=== PATIENT | female | born 1965 | race Caucasian/White ===

== ENCOUNTER → 2017-05-21 | Outpatient (CLI) | payer BC ==
--- NOTE | 2017-05-21 16:42 | BD ---
EXAMINATION TYPE: MG DEXA axial skeleton. DATE OF EXAM: 05/21/2017 COMPARISON: NONE CLINICAL HISTORY: 51-year-old female postmenopausal screening without HRT Height: 62.5 Weight: 188.5 FRAX RISK QUESTIONS: Alcohol (3 or more units per day): no Family History (Parent hip fracture): no Glucocorticoids (More than 3mos): no (Ex: prednisone, prednisolone, methylprednisolone, dexamethasone, and hydrocortisone). History of Fracture in Adulthood: no Secondary Osteoporosis: 1. Type 1 Diabetes: no 2. Hyperthyroidism: no 3. Menopause before 45: yes 4. Malnutrition: no 5. Chronic liver disease: no Rheumatoid Arthritis: no Current Tobacco Use: no RISK FACTORS HISTORY OF: History of Wrist Fracture: right When: 1979 Surgery to Spine/Hip(right/left)/Wrist (right/left): no Family History of Osteoporosis: no Active: no Diet low in dairy products/other sources of calcium: yes Postmenopausal woman: hysterectomy 2012 Lost more than 2 inches in height since high school: no Frequent falls: no Poor Health: no Adrenal Insufficiency: no MEDICATIONS: simvastatin , Imitrex Additional History: EXAM MEASUREMENTS: Bone mineral densitometry was performed using the [employer]ero System. Bone mineral density as measured about the Lumbar spine is: ----- L1-L4(G/cm2): 1.412 T Score Values are as follows: ----- L2: 1.6 ----- L3: 2.1 ----- L4: 2.8 ----- L1-L4: 1.9 Bone mineral density has: baseline Bone mineral density about the R hip (g/cm2): 1.032 Bone mineral density about the L hip (g/cm2): 0.982 T Score values are as follows: -----R Neck: 0.0 -----L Neck: -0.4 -----R Total: 0.9 -----L Total: 0.4 Bone mineral density has: baseline IMPRESSION: Normal (Values between +1 and -1 indicate normal bone mass). Consider repeating this study in 5 year s or sooner if there is some new clinical indication. NOTE: T-SCORE=SD OF THE YOUNG ADULT MEAN.
--- NOTE | 2017-05-26 10:26 | MM ---
Reason for exam: screening (asymptomatic). Last mammogram was performed 8 years ago. History: Family history of breast cancer in paternal aunt. Took hormonal contraceptives for 10 years. Physical Findings: A clinical breast exam by your physician is recommended on an annual basis and results should be correlated with mammographic findings. MG Screening Mammo w CAD Bilateral CC and MLO view(s) were taken. Prior study comparison: May 24, 2009, bilateral digital screening mammogram. There are scattered fibroglandular densities. New adjacent circumscribed masses upper outer quadrant right breast and smaller nodular focal asymmetry 8-9 o'clock right breast middle depth. ASSESSMENT: Incomplete: need additional imaging evaluation, BI-RAD 0 RECOMMENDATION: Ultrasound of the right breast. (7-11 o'clock) [facility] will attempt to contact patient to return for ultrasound.
== END | disposition home or self-care (01) ==
LOC: RADMAMWWP 08:41
PROVIDERS: ATTEND Family Medicine
DX: Z12.31 Encounter for screening mammogram for malignant neoplasm of breast (principal); Z78.0 Asymptomatic menopausal state
CPT/HCPCS: 77067; 77080

== ENCOUNTER → 2017-05-27 | Outpatient (CLI) | payer BC ==
--- NOTE | 2017-05-27 10:11 | USB ---
Reason for exam: additional evaluation requested from abnormal screening. History: Family history of breast cancer in paternal aunt. Took hormonal contraceptives for 10 years. Physical Findings: Nurse did not find any significant physical abnormalities on exam. US Breast Workup Limited RT Right breast ultrasound demonstrates a 2.2 x 1.0 x 1.1cm lobular, cystic, benign lesion at 10 o'clock, a 0.9 x 0.5 x 1.2cm lobular, benign, cystic cluster at 10 o'clock and a 0.8 x 0.4 x 0.6cm microlobular, solid, hypoechoic, vascular lesion at 7 o'clock These results were verbally communicated with the patient and result sheet given to the patient on 05/27/17. ASSESSMENT: Suspicious, BI-RAD 4 RECOMMENDATION: Ultrasound core biopsy of the right breast. (7:00) Called Dr. Craig with mammographic findings and has scheduled an appointment for the patient for 05/29/17 at 8:[address] Salguero. PRELIMINARY REPORT CALLED AND FAXED TO DR. SALGUERO ON 05/27/17.
== END | disposition home or self-care (01) ==
LOC: RADUSWWP 08:34
PROVIDERS: ATTEND Family Medicine
DX: N63.11 Unspecified lump in the right breast, upper outer quadrant (principal); R92.8 Other abnormal and inconclusive findings on diagnostic imaging of breast

== ENCOUNTER → 2017-06-16 | Day surgery (SDC) | payer BC ==
[2017-06-16 11:39] VITALS: RESP 16; TEMP 98.1; BMI 34.7
[2017-06-16 13:10] VITALS: BP 141/82; PULSE 68
--- NOTE | 2017-06-16 13:26 | USB ---
EXAMINATION TYPE: US biopsy breast VAD RT, MG diagnostic mammo RT wo CAD DATE OF EXAM: 06/16/2017 CLINICAL HISTORY: R92.8 Abn mammo. TECHNIQUE: Ultrasound guided core biopsy of right 7:00 breast. COMPARISON: NONE FINDINGS: The procedure of ultrasound guided core biopsy was explained to the patient. Benefits, alternatives, and risks were discussed. An informed consent was then obtained. The patient was placed in supine positioning for imaging and for the procedure. The overlying skin was prepped and draped in usual sterile fashion. Lidocaine buffered with bicarbonate was used as anesthetic into the skin and subcutaneous tissue up to area of concern in the right 7:00 breast. A faustino was made with surgical scalpel. Under ultrasound guidance, a 12-gauge vacuum assisted biopsy gun device was used to obtain 4 core samples. Following this, a biopsy clip was left in lesion. Postprocedural mammogram demonstrates appropriate deployment. The patient tolerated the procedure well without any immediate complication. The patient was kept in the radiology department for short stay after the procedure and then discharged home in stable condition. IMPRESSION: Successful, uncomplicated ultrasound guided core biopsy of area of concern in the right 7:00 breast, full pathology results to follow. Pathology Results: Benign BREAST, RIGHT, 7:00, CORE BIOPSY: FIBROADENOMA. BACKGROUND FIBROCYSTIC CHANGES INCLUDING CYSTS AND FIBROSIS. Recommendation Follow up mammogram of the right breast in 6 months. RON
== END ==
LOC: RADUSWWP 11:06
PROVIDERS: ATTEND Surgery
DX: D24.1 Benign neoplasm of right breast (principal); N60.31 Fibrosclerosis of right breast; Z88.2 Allergy status to sulfonamides
CPT/HCPCS: 88305; 77065; 19083; A4648; J2001

== ENCOUNTER 2017-08-01 12:55 | Observation (INO) | payer BC ==
[2017-08-01] MEDS ORDERED: SODIUM CHLORIDE 0.9% 1,000 ML IV STA ×2 (13:51)
[2017-08-01 14:07] LABS: Appearance,Urine Clear (Clear); Bilirubin,Urine Negative (Negative); Blood,Urine Negative (Negative); Color,Urine Yellow; Glucose,Urine (UA) Negative (Negative); Ketones,Urine Negative (Negative); Leukocyte Esterase,Urine Negative (Negative); Nitrite,Urine Negative (Negative); PH, Urine 5.5 (5.0-8.0); Protein,Urine Trace (Negative); Specific Gravity,Urine 1.027 (1.001-1.035); Urobilinogen,Urine <2.0 mg/dL (<2.0)
[2017-08-01 14:08] LABS: Basophils # (A) 0.1 k/uL (0-0.2); Basophils % (A) 1 %; Eosinophils % (A) 0 %; HCT 25.2 % (34.0-46.0); Hypochromasia Slight; Lymphocytes # (A) 1.5 k/uL (1.0-4.8); Lymphocytes % (A) 17 %; MCH 29.4 pg (25.0-35.0); MCHC 31.6 g/dL (31.0-37.0); Mean Platelet Volume 6.7; Monocytes # (A) 0.4 k/uL (0-1.0); Monocytes % (A) 5 %; Neutrophils # (A) 6.8 k/uL (1.3-7.7); Neutrophils % (A) 76 %; Platelet Count 475 k/uL (150-450); Poikilocytosis Slight; RBC 2.71 m/uL (3.80-5.40); RDW 13.9 % (11.5-15.5); WBC 8.9 k/uL (3.8-10.6)
[2017-08-01 14:16] LABS: ALT 30 U/L (9-52); AST 23 U/L (14-36); Albumin 4.3 g/dL (3.5-5.0); Alkaline Phosphatase 71 U/L (38-126); Amylase 106 U/L (30-110); Anion Gap 14 mmol/L; Blood Urea Nitrogen 14 mg/dL (7-17); Calcium 10.1 mg/dL (8.4-10.2); Carbon Dioxide 22 mmol/L (22-30); Chloride 106 mmol/L (98-107); Glucose 105 mg/dL (74-99); Lipase 248 U/L (23-300); Potassium 3.9 mmol/L (3.5-5.1); Sodium 142 mmol/L (137-145); Total Bilirubin 0.1 mg/dL (0.2-1.3); Total Protein 6.8 g/dL (6.3-8.2)
--- NOTE | 2017-08-01 14:35 | ED ---
Recheck HPI - General Chief Complaint: Recheck/Abnormal Lab/Rx Stated Complaint: low Hgb Time Seen by Provider: 08/01/17 13:40 Source: patient, RN notes reviewed, old records reviewed Mode of arrival: wheelchair Limitations: no limitations - History of Present Illness Initial Comments: Is a 51-year-old female presenting to plan for reevaluation. She states that she went to urgent care a few days ago and was sinus the urinary tract infection. They did laboratory that time. They called back because her hemoglobin was low. Patient occasionally she feels dizzy and lightheaded. She denies any specific chest pain. Occasional shortness of breath. Denies any heavy vaginal bleeding, hysterectomy many years ago. Patient she's had occasional dark stools. She denies any abdominal pain Patient she does feel like she is doing with some mild renal minor constipation. No vomiting. - Related Data Home Medications Medication Instructions Recorded Confirmed [id number] 2 tab PO Q6HR PRN 01/05/14 08/01/17 [Excedrin] Multivitamin [Multivitamins Adult 1 tab PO DAILY 06/02/17 08/01/17 Gummies] SUMAtriptan SUCCINATE [Sumatriptan 100 mg PO TID PRN 06/02/17 08/01/17 Succinate] Simvastatin [Zocor] 20 mg PO DAILY 06/02/17 08/01/17 Aspirin 325 mg PO ONCE PRN 08/01/17 08/01/17 Ciprofloxacin HCl [Cipro] 500 mg PO BID 08/01/17 08/01/17 Allergies Allergy/AdvReac Type Severity Reaction Status Date / Time Sulfa (Sulfonamide Allergy Unknown Verified 08/01/17 14:10 Antibiotics) Review of Systems ROS Statement: Those systems with pertinent positive or pertinent negative responses have been documented in the HPI. ROS Other: All systems not noted in ROS Statement are negative. Past Medical History Past Medical History: Hyperlipidemia Additional Past Medical History / Comment(s): migraines History of Any Multi-Drug Resistant Organisms: None Reported Past Surgical History: Section, Hysterectomy, Tubal Ligation Past Anesthesia/Blood Transfusion Reactions: No Reported Reaction Past Psychological History: No Psychological Hx Reported Smoking Status: Former smoker Past Alcohol Use History: None Reported Past Drug Use History: None Reported General Exam - General Exam Comments Initial Comments: 51-year-old female. Alert and oriented. No acute distress. Limitations: no limitations General appearance: alert, in no apparent distress Head exam: Present: atraumatic, normocephalic, normal inspection Eye exam: Present: normal appearance, PERRL, EOMI. Absent: scleral icterus, conjunctival injection, periorbital swelling ENT exam: Present: normal exam, mucous membranes moist Neck exam: Present: normal inspection. Absent: tenderness, meningismus, lymphadenopathy Respiratory exam: Present: normal lung sounds bilaterally. Absent: respiratory distress, wheezes, rales, rhonchi, stridor Cardiovascular Exam: Present: regular rate, normal rhythm, normal heart sounds. Absent: systolic murmur, diastolic murmur, rubs, gallop, clicks GI/Abdominal exam: Present: soft, normal bowel sounds. Absent: distended, tenderness, guarding, rebound, rigid Extremities exam: Present: normal inspection, full ROM, normal capillary refill. Absent: tenderness, pedal edema, joint swelling, calf tenderness Back exam: Present: normal inspection Neurological exam: Present: alert, oriented X3, CN II-XII intact Psychiatric exam: Present: normal affect, normal mood Skin exam: Present: warm, dry, intact, normal color. Absent: rash Course Vital Signs 08/01/17 08/01/17 13:17 15:06 Temperature 98.4 F Pulse Rate 87 88 Respiratory 18 16 Rate Blood Pressure 117/54 126/61 O2 Sat by Pulse 100 95 Oximetry - Reevaluation(s) Reevaluation #1: 08/01/17 16:51 Patient is reevaluated she is to continue to complain of some dizziness and lightheadedness. They plan to admit the Patient and she had near syncopal episode. Medical Decision Making - Medical Decision Making 51-year-old female presents emergency Department chief complaint of fatigue dizziness. She states she was told at urgent care that she had a low hemoglobin yesterday. She was treated in urgent care for a urinary tract infection. At this time patient's labwork was reviewed. Hemoglobin of 8. Stool occult was negative. She states the past few days she did have some dark stools. Patient is concerned about her dizziness and lightheadedness, symptomatic anemia. Amanda of the Patient she still felt very dizzy lightheaded. Patient be given Protonix. Admitted to observation for repeat CBC and iron studies. - Lab Data Result diagrams: 08/01/17 13:45 08/01/17 13:45 Lab Results 08/01/17 08/01/17 08/01/17 Range/Units 13:45 13:45 13:45 WBC 8.9 (3.8-10.6) k/uL RBC 2.71 L (3.80-5.40) m/uL Hgb 8.0 L (11.4-16.0) gm/dL Hct 25.2 L (34.0-46.0) % MCV 93.0 (80.0-100.0) fL MCH 29.4 (25.0-35.0) pg MCHC 31.6 (31.0-37.0) g/dL RDW 13.9 (11.5-15.5) % Plt Count 475 H (150-450) k/uL Neutrophils % 76 % Lymphocytes % 17 % Monocytes % 5 % Eosinophils % 0 % Basophils % 1 % Neutrophils # 6.8 (1.3-7.7) k/uL Lymphocytes # 1.5 (1.0-4.8) k/uL Monocytes # 0.4 (0-1.0) k/uL Eosinophils # 0.0 (0-0.7) k/uL Basophils # 0.1 (0-0.2) k/uL Hypochromasia Slight Poikilocytosis Slight Sodium 142 (137-145) mmol/L Potassium 3.9 (3.5-5.1) mmol/L Chloride 106 (98-107) mmol/L Carbon Dioxide 22 (22-30) mmol/L Anion Gap 14 mmol/L BUN 14 (7-17) mg/dL Creatinine 0.80 (0.52-1.04) mg/dL Est GFR (CKD-EPI)AfAm >90 (>60 ml/min/1.73 sqM) Est GFR (CKD-EPI)NonAf 87 (>60 ml/min/1.73 sqM) Glucose 105 H (74-99) mg/dL Calcium 10.1 (8.4-10.2) mg/dL Total Bilirubin 0.1 L (0.2-1.3) mg/dL AST 23 (14-36) U/L ALT 30 (9-52) U/L Alkaline Phosphatase 71 (38-126) U/L Total Creatine Kinase (30-135) U/L CK-MB (CK-2) (0.0-2.4) ng/mL CK-MB (CK-2) Rel Index Troponin I (0.000-0.034) ng/mL Total Protein 6.8 (6.3-8.2) g/dL Albumin 4.3 (3.5-5.0) g/dL Amylase 106 (30-110) U/L Lipase 248 (23-300) U/L Urine Color Urine Appearance (Clear) Urine pH (5.0-8.0) Ur Specific [place] (1.001-1.035) Urine Protein (Negative) Urine Glucose (UA) (Negative) Urine Ketones (Negative) Urine Blood (Negative) Urine Nitrite (Negative) Urine Bilirubin (Negative) Urine Urobilinogen (<2.0) mg/dL Ur Leukocyte Esterase (Negative) Stool Occult Blood (Negative) Blood Type A Positive Blood Type Recheck No Antibody Screen NEGATIVE Spec Expiration Date 08/04/2017 - 234408/01/17 08/01/17 08/01/17 Range/Units 13:45 13:45 Unknown WBC (3.8-10.6) k/uL RBC (3.80-5.40) m/uL Hgb (11.4-16.0) gm/dL Hct (34.0-46.0) % MCV (80.0-100.0) fL MCH (25.0-35.0) pg MCHC (31.0-37.0) g/dL RDW (11.5-15.5) % Plt Count (150-450) k/uL Neutrophils % % Lymphocytes % % Monocytes % % Eosinophils % % Basophils % % Neutrophils # (1.3-7.7) k/uL Lymphocytes # (1.0-4.8) k/uL Monocytes # (0-1.0) k/uL Eosinophils # (0-0.7) k/uL Basophils # (0-0.2) k/uL Hypochromasia Poikilocytosis Sodium (137-145) mmol/L Potassium (3.5-5.1) mmol/L Chloride (98-107) mmol/L Carbon Dioxide (22-30) mmol/L Anion Gap mmol/L BUN (7-17) mg/dL Creatinine (0.52-1.04) mg/dL Est GFR (CKD-EPI)AfAm (>60 ml/min/1.73 sqM) Est GFR (CKD-EPI)NonAf (>60 ml/min/1.73 sqM) Glucose (74-99) mg/dL Calcium (8.4-10.2) mg/dL Total Bilirubin (0.2-1.3) mg/dL AST (14-36) U/L ALT (9-52) U/L Alkaline Phosphatase (38-126) U/L Total Creatine Kinase 56 (30-135) U/L CK-MB (CK-2) 0.5 (0.0-2.4) ng/mL CK-MB (CK-2) Rel Index 0.9 Troponin I <0.012 (0.000-0.034) ng/mL Total Protein (6.3-8.2) g/dL Albumin (3.5-5.0) g/dL Amylase (30-110) U/L Lipase (23-300) U/L Urine Color Yellow Urine Appearance Clear (Clear) Urine pH 5.5 (5.0-8.0) Ur Specific [place] 1.027 (1.001-1.035) Urine Protein Trace H (Negative) Urine Glucose (UA) Negative (Negative) Urine Ketones Negative (Negative) Urine Blood Negative (Negative) Urine Nitrite Negative (Negative) Urine Bilirubin Negative (Negative) Urine Urobilinogen <2.0 (<2.0) mg/dL Ur Leukocyte Esterase Negative (Negative) Stool Occult Blood Negative (Negative) Blood Type Blood Type Recheck Antibody Screen Spec Expiration Date - Radiology Data Radiology results: report reviewed KUB and chest x-rays negative for any acute process. Disposition Clinical Impression: Anemia, Near syncope Disposition: ADMITTED IP TO THIS [facility] Condition: Good Is patient prescribed a controlled substance at d/c from ED?: No When asked, does pt state using other controlled substances?: No If prescribed controlled substance>3 days was MAPS reviewed?: No If opioid is for acute pain is fill amount 7 days or less?: No If Rx opioid, was Start Talking consent form obtained?: No Referrals: Maite Craig MD [Primary Care Provider] - 1-2 days Time of Disposition: 16:53
[2017-08-01 14:44] LABS: Creatine Kinase 56 U/L (30-135)
[2017-08-01 14:57] LABS: Creatine Kinase MB 0.5 ng/mL (0.0-2.4); Troponin I <0.012 ng/mL (0.000-0.034)
--- NOTE | 2017-08-01 15:26 | XR ---
EXAMINATION TYPE: XR chest 2V DATE OF EXAM: 08/01/2017 COMPARISON: Prior chest 01/05/2014 HISTORY: Syncope, anemia, pain TECHNIQUE: Frontal and lateral views of the chest are obtained. FINDINGS: There is no focal air space opacity, pleural effusion, or pneumothorax seen. The cardiac silhouette size is within normal limits. The osseous structures are intact. IMPRESSION: No acute cardiopulmonary process.
--- NOTE | 2017-08-01 15:28 | XR ---
Abdomen HISTORY: Anemia, pain Frontal view of the abdomen submitted on 2 images Comparison chest x-ray same date There is mild spinal curvature. Lung bases are clear. There is no pneumoperitoneum or bowel obstructi on. There is metallic density in the right hemipelvis which may represent a fallopian tubal ligation clip. Correlate with appropriate history. Degenerative disc changes in the visualized spine. No evide nt pathologic calcification. Possible phleboliths in the pelvis. IMPRESSION: Single possible tubal ligation clip in the pelvis, correlate for appropriate history. Fin dings in the spine as described.
[2017-08-01] MEDS ORDERED: PANTOPRAZOLE 40 MG/10 ML VIAL IVP STA (16:53)
[2017-08-01] MEDS ORDERED: ONDANSETRON 4 MG/2 ML VIAL IVP PRN (16:55)
[2017-08-01] MEDS ORDERED: NALOXONE 0.4 MG/ML 1 ML VIAL IV PRN (16:55)
[2017-08-01] MEDS ORDERED: IBUPROFEN 400 MG TAB PO PRN (16:55)
[2017-08-01] MEDS ORDERED: ACETAMINOPHEN TAB 325 MG TAB PO PRN (16:55)
[2017-08-01] MEDS ORDERED: MORPHINE SULFATE 4 MG/ML SYRINGE IV PRN (16:55)
[2017-08-01] MEDS ORDERED: ASPIRIN-ACET-CAFF 250-250-65MG 1 EACH TAB PO PRN (16:57)
[2017-08-01] MEDS ORDERED: ASPIRIN 325 MG TAB PO PRN (16:57)
[2017-08-01] MEDS: SODIUM CHLORIDE 0.9% 1,000 ML IV SCH (18:22)
[2017-08-01] MEDS: CIPROFLOXACIN HCL 500 MG TAB PO SCH (19:36)
[2017-08-01] MEDS ORDERED: TEMAZEPAM 15 MG CAP PO PRN (20:27)
[2017-08-01] MEDS ORDERED: ALPRAZolam 0.25 MG TAB PO PRN (20:27)
--- NOTE | 2017-08-01 21:30 | HP ---
HISTORY AND PHYSICAL DATE OF SERVICE: 08/01/2017 CHIEF COMPLAINTS: Anemia as well as dark stools. HISTORY OF PRESENT ILLNESS: This 51-year-old woman with a past medical history of multiple medical problems, including hyperlipidemia, history of migraines, section, hysterectomy, being followed by Dr. Maite Craig in the outpatient setting, was complaining of tiredness and weakness and some dizziness. The patient had a UTI a few days ago and was treated in Urgent Care. Hemoglobin was found to be low, and because of multiple symptomatology patient was taken to [facility] and admitted for further evaluation and treatment. The patient was also complaining of dark-colored stools; not actually melena at this time. PAST MEDICAL HISTORY: 1. History of hyperlipidemia. 2. Migraines. 3. Hysterectomy. MEDICATIONS PRIOR TO ADMISSION: 1. Zocor 20 mg p.o. daily. 2. Sumatriptan 100 mg t.i.d. p.r.n. 3. Multivitamins 1 p.o. daily. 4. Cipro 500 mg b.i.d. 5. Excedrin 2 tablets p.o. q.6 p.r.n. 6. Aspirin 325 mg once. ALLERGIES: SULFA. FAMILY HISTORY: History of hypertension and diet-controlled diabetes mellitus. SOCIAL HISTORY: Previous history of smoking. No current smoking or alcohol intake. REVIEW OF SYSTEMS: ENT: No diminished hearing. No diminished vision. CARDIOVASCULAR SYSTEM: As mentioned earlier. RESPIRATORY SYSTEM: As mentioned earlier. GI: No nausea, vomiting. : No dysuria or retention. NERVOUS SYSTEM: No numbness, weakness. ALLERGY/IMMUNOLOGY: No asthma, hayfever. MUSCULOSKELETAL: As mentioned earlier. HEMATOLOGY/ONCOLOGY: No history of anemia. ENDOCRINE: No history of diabetes, hypothyroidism. CONSTITUTIONAL: As mentioned earlier. DERMATOLOGY: Negative. RHEUMATOLOGY: Negative. PSYCHIATRY: As mentioned earlier. PHYSICAL EXAMINATION: Patient alert and oriented x3. Pulse 88, blood pressure 129/59, respirations 16, temperature 98.3, pulse ox 100% on room air. HEENT: Conjunctivae pale. Oral mucosa moist. Pigmented areas of the lips present. NECK: No jugular venous distention. No carotid bruit. No lymph node enlargement. CARDIOVASCULAR SYSTEM: S1, S2 muffled. No S3. No S4. RESPIRATORY SYSTEM: Breath sounds diminished at the bases. No rhonchi. No crackles. ABDOMEN: Soft, non-tender. No mass palpable. LEGS: No edema. No swelling. NERVOUS SYSTEM: Higher functions as mentioned earlier. Moves all 4 limbs. No focal motor or sensory deficit. LYMPHATICS: No lymph node palpable in neck, axillae or groin. SKIN: No ulcer, rash, bleeding. JOINTS: No active deforming arthropathy. LABS: WBC 8.9, hemoglobin is 8 and glucose 105. Total bilirubin is 0.1. ASSESSMENT: 1. Anemia, acute on chronic, possible blood-loss anemia. Rule out GI bleed. 2. History of hyperlipidemia. 3. History of migraines. 4. History of section. 5. History of hysterectomy. 6. Remote history of nicotine dependence. 7. Melanosis around the lips. 8. FULL CODE. RECOMMENDATIONS AND DISCUSSION: In this 51-year-old woman who presented with multiple complex medical issues, we will monitor the patient closely, continue the current medications, continue symptomatic treatment. Otherwise, I recommend proton pump inhibitors. Repeat labs. I would also recommend gastroenterology consultation and possible endoscopies. The initial possibilities like Peutz-Jeghers syndrome also may be considered, and a polyposis syndrome would be classical of that syndrome. I would recommend holding the aspirin and continue to monitor. Otherwise, guarded prognosis. Further recommendations to follow. DVT prophylaxis. Repeat labs have been sought. Symptomatic treatment also will be provided. MMODL / IJN: [id number] /
[2017-08-02 00:51] LABS: Iron Saturation 2.86 (12.00-45.00)
[2017-08-02] MEDS: SODIUM CHLORIDE 0.9% 1,000 ML IV SCH ×4 (01:07→22:43)
[2017-08-02 07:51] LABS: Anion Gap 13 mmol/L; Blood Urea Nitrogen 11 mg/dL (7-17); Calcium 8.9 mg/dL (8.4-10.2); Carbon Dioxide 21 mmol/L (22-30); Chloride 107 mmol/L (98-107); Glucose 86 mg/dL (74-99); Potassium 3.7 mmol/L (3.5-5.1); Sodium 141 mmol/L (137-145)
[2017-08-02 07:53] LABS: Basophils % (A) 1 %; Eosinophils # (A) 0.1 k/uL (0-0.7); Eosinophils % (A) 1 %; HCT 21.3 % (34.0-46.0); Hypochromasia Slight; Lymphocytes # (A) 1.7 k/uL (1.0-4.8); Lymphocytes % (A) 28 %; MCHC 32.2 g/dL (31.0-37.0); Mean Platelet Volume 6.7; Monocytes # (A) 0.4 k/uL (0-1.0); Monocytes % (A) 6 %; Neutrophils # (A) 3.8 k/uL (1.3-7.7); Neutrophils % (A) 62 %; Platelet Count 405 k/uL (150-450); Poikilocytosis Slight; RBC 2.29 m/uL (3.80-5.40); RDW 13.8 % (11.5-15.5)
[2017-08-02 08:03] LABS: HGB 6.9 gm/dL (11.4-16.0)
[2017-08-02] MEDS ORDERED: PANTOPRAZOLE 40 MG/10 ML VIAL IV SCH (09:00)
[2017-08-02] MEDS: ATORVASTATIN 10 MG TAB PO SCH (09:20)
[2017-08-02] MEDS: CIPROFLOXACIN HCL 500 MG TAB PO SCH (09:21)
[2017-08-02] MEDS: PANTOPRAZOLE 40 MG/10 ML VIAL IV SCH ×2 (09:22→19:43)
[2017-08-02] MEDS: Acetaminophen-Codeine 300-30mg TAB PO PRN ×3 (09:23→20:44)
[2017-08-02] MEDS: SUMAtriptan SUCCINATE 50 MG TAB PO PRN ×2 (11:49→19:42)
[2017-08-02] MEDS: MULTIVITAMINS, THERA 1 EACH TAB PO SCH (14:30)
[2017-08-02] MEDS ORDERED: IV FLUID CONTINUATION 1,000 ML IV ONE (15:15)
[2017-08-02] MEDS ORDERED: LIDOCAINE 1% INJ 10MG/ML (20 ML MDV) ONE (15:18)
[2017-08-02] MEDS ORDERED: PROPOFOL 10 MG/ML 20 ML VIAL IV ONE (15:18)
--- NOTE | 2017-08-02 15:19 | P.CONS ---
History of Present Illness - Reason for Consult Consult date: 08/02/17 GI bleeding and anemia - History of Present Illness The patient is a 51-year-old female who was admitted to the hospital because of anemia. Apparently, she was seen at the urgent care clinic the day before admission for urinary tract infection and was cold back because she was found to have low blood counts. The patient apparently has been feeling tired and was having occasional dark stools. She has history of migraine and has been taking Excedrin for that. Denied nausea, vomiting or hematemesis. No hematochezia. No abdominal pains or other symptoms. No chest pains or any sensory or motor changes. Review of Systems Constitutional: Denies fever, chills, sweats, weight gain, or loss. Increased fatigue weakness. HEENT: History of migraines, blurred vision or loss, earaches, drainage, tinnitus, oral mucosal lesions, dysphagia, or odynophagia. CARDIAC: Negative for chest pain, arrhythmias, or palpitation. RESPIRATORY: Negative for shortness of breath, hemoptysis, cough, or sputum production. GI: See HPI for pertinent findings. : Negative for hematuria, urgency, frequency, polyuria, or dysuria. GYNc: Negative vaginal discharge. MUSCULOSKELETAL: Negative for muscle aches, swelling, arthritis, and arthralgias. NEUROLOGIC: Negative for stroke or TIA. ENDOCRINE: Negative for thyroid problems. SKIN: Negative for rash or itching. PSYCHIATRIC: Negative history for depression and anxiety Past Medical History Past Medical History: Hyperlipidemia Additional Past Medical History / Comment(s): migraines, dx w/uti 07-31-17 History of Any Multi-Drug Resistant Organisms: None Reported Past Surgical History: Section, Hysterectomy, Tubal Ligation Additional Past Surgical History / Comment(s): venecia eye sx d/t lazy eye Past Anesthesia/Blood Transfusion Reactions: No Reported Reaction Smoking Status: Former smoker - Past Family History Mother Additional Family Medical History / Comment(s): diet conrrolled dm Father Family Medical History: Hypertension Additional Family Medical History / Comment(s): diet controlled diabetic Medications and Allergies Home Medications Medication Instructions Recorded Confirmed Type [id number] 2 tab PO Q6HR PRN 01/05/14 08/01/17 History [Excedrin] Multivitamin [Multivitamins Adult 1 tab PO DAILY 06/02/17 08/01/17 History Gummies] SUMAtriptan SUCCINATE [Sumatriptan 100 mg PO TID PRN 06/02/17 08/01/17 History Succinate] Simvastatin [Zocor] 20 mg PO DAILY 06/02/17 08/01/17 History Aspirin 325 mg PO ONCE PRN 08/01/17 08/01/17 History Ciprofloxacin HCl [Cipro] 500 mg PO BID 08/01/17 08/01/17 History Allergies Allergy/AdvReac Type Severity Reaction Status Date / Time Sulfa (Sulfonamide Allergy Unknown Verified 08/01/17 14:10 Antibiotics) Physical Exam Vitals: Vital Signs Temp Pulse Pulse Resp BP BP Pulse Ox 08/02/17 13:33 97.6 F 79 18 116/60 08/02/17 10:51 98.3 F 81 18 116/80 08/02/17 10:21 98.1 F 89 18 127/67 08/02/17 10:11 97.4 F L 79 18 120/74 08/02/17 05:00 97.0 F L 76 16 112/58 98 08/01/17 23:12 16 08/01/17 22:00 98.0 F 105 H 16 126/67 99 08/01/17 18:08 98.3 F 88 16 129/59 100 08/01/17 17:46 76 16 139/83 100 Intake and Output 08/02/17 08/02/17 08/02/17 06:59 14:59 22:59 Intake Total 1160 310 Balance 1160 310 Intake: Intake, IV Titration 800 Amount Sodium Chloride 0.9% 1, 800 000 ml @ 100 mls/hr IV . Q10H [facility] Rx#:[id number] Oral 360 Blood Product 310 Rc As-1 Unit 310 [id number] Other: Voiding Method Toilet Toilet # Voids 2 General appearance: The patient is alert, oriented, in no acute distress. HET: Head is normocephalic and atraumatic. Pupils are equal and reactive. Oropharynx is clear without lesions. Neck: Supple without lymphadenopathy. Trachea midline. Heart: S1 S2. Regular rate and rhythm. Lungs: No crackles or wheezes are heard. Abdomen: Soft, nontender, nondistended with bowel sounds. No peritoneal signs. No palpable organomegaly or masses. Extremities: Normal skin color and turgor. No cyanosis, rash, ulceration, clubbing, or edema. Radial and pedal pulses are 2/4 bilaterally. Neurological: No focal deficits. Strength and sensation are grossly intact. Results CBC & Chem 7: 08/02/17 07:00 08/02/17 07:00 Labs: Abnormal Lab Results - Last 24 Hours (Table) 08/01/17 08/01/17 08/02/17 Range/Units 13:45 13:45 07:00 RBC 2.29 L (3.80-5.40) m/uL Hgb 6.9 L* (11.4-16.0) gm/dL Hct 21.3 L (34.0-46.0) % Carbon Dioxide (22-30) mmol/L Iron 11 L (50-170) ug/dL Iron Saturation 2.86 L (12.00-45.00) Ferritin 5.4 L (10.0-291.0) ng/mL Crossmatch See Detail 08/02/17 Range/Units 07:00 RBC (3.80-5.40) m/uL Hgb (11.4-16.0) gm/dL Hct (34.0-46.0) % Carbon Dioxide 21 L (22-30) mmol/L Iron (50-170) ug/dL Iron Saturation (12.00-45.00) Ferritin (10.0-291.0) ng/mL Crossmatch Assessment and Plan Assessment: Profound anemia and dark stools, rule out peptic ulcer disease, possibly NSAID related. Plan: Proceed with EGD today. Further plans based on her findings.
[2017-08-02] MEDS ORDERED: SODIUM CHLORIDE 0.9% 1,000 ML IV ONE (15:25)
--- NOTE | 2017-08-02 15:48 | P.PCN ---
Date of Procedure: 08/02/17 Procedure(s) Performed: Procedure: Esophagogastroduodenoscopy and biopsy. Preoperative diagnosis: GI bleeding and anemia. Postoperative diagnosis: 1. Hiatal hernia with no obvious esophagitis or complicated reflux disease. 2. Antral gastritis with small prepyloric ulcer not actively bleeding. 3. Duodenal bulb ulcers not bleeding at the time of the exam and with no evidence of gastric outlet obstruction. 4. Biopsies obtained from the antrum to rule out H. pylori infection. Preparation and sedation: Was provided by anesthesia. Brief clinical history: The patient is a 51-year-old female who was admitted to the hospital because of anemia. Apparently, she was seen at the urgent care clinic the day before admission for urinary tract infection and was called back because she was found to have low blood counts. The patient apparently has been feeling tired and was having occasional dark stools. She has history of migraine and has been taking Excedrin for that. Denied nausea, vomiting or hematemesis. No hematochezia. No abdominal pains or other symptoms. No chest pains or any sensory or motor changes. She had no further bowel movements since admission. Hemoglobin was 8 on admission and it dropped to 6.9. Other details are summarized in the history and physical and dictated consultation and progress notes. Procedure: With the patient on her left lateral decubitus position and after informed consent and adequate sedation, I passed the Olympus-GIF 160 video upper endoscope through the cricopharyngeus down the esophagus. GE junction was around 37-38 cm from the incisors and there was a small hiatal hernia but there was no evidence of esophagitis or complicated reflux disease. The endoscope was then passed into the rest of the stomach which was insufflated with air and inspected in detail including the retroflex view in the cardia. There was some mottling and erythema in the antrum there was a prepyloric ulcer covered with white exudate with no evidence of bleeding. Pyloric channel did not show any ulcers. Duodenal bulb showed 2 ulcer craters covered with white exudate against a background of edema, erythema and friability of the mucosa, with no evidence of active bleeding or any dark protuberances, clots or oozing of blood. Post bulbar area and descending duodenum appeared healthy. I obtained biopsies from the antrum to rule out H. pylori infection then the endoscope was withdrawn. The patient tolerated the procedure well. Plan: The patient was reassured. Will await biopsy results. In the meantime we will continue PPI. Will allow liquid diet then advance as tolerated. We will continue to follow with you with interest.
[2017-08-02 16:02] LABS: HCT 26.7 % (34.0-46.0); Hypochromasia Slight; MCH 29.4 pg (25.0-35.0); MCHC 31.7 g/dL (31.0-37.0); MCV 92.8 fL (80.0-100.0); Mean Platelet Volume 7.9; Platelet Count 388 k/uL (150-450); Poikilocytosis Slight; RBC 2.87 m/uL (3.80-5.40); RDW 13.7 % (11.5-15.5); WBC 6.4 k/uL (3.8-10.6)
[2017-08-02 16:09] LABS: HGB 8.5 gm/dL (11.4-16.0)
[2017-08-02] MEDS: SUCRALFATE 1 GM TAB PO SCH (19:42)
--- NOTE | 2017-08-02 20:46 | PN ---
PROGRESS NOTE DATE OF SERVICE: 08/02/2017 This 51-year-old woman was admitted with acute blood loss anemia, had multiple transfusions. Hemoglobin is stable at 8.5 at this time, improved from 6.9. Dr. Lebron performed EGD which showed hiatal hernia as well as antral gastritis with a small pre- pyloric ulcer and duodenal bulb ulcers, not bleeding, and biopsies were obtained. The patient apparently is taking multiple doses of Excedrin for migraine headaches. No chest pain. No palpitations. No fever. EXAM: Alert and oriented x3. Pulse 80, blood pressure 133/60, respirations 18, temperature 97.8, pulse ox 100% on room air. HEENT: Conjunctivae normal. Oral mucosa moist. NECK: No jugular venous distention. No carotid bruits. No lymph node enlargement. CARDIOVASCULAR: S1, S2 muffled. RESPIRATORY: Breath sounds diminished in the bases. A few rhonchi. No crackles. ABDOMEN: Soft, nontender. No mass palpable. LEGS: No edema. NERVOUS SYSTEM: Nonfocal. LABS: WBC 6.2, hemoglobin is 8.5. ASSESSMENT: 1. Anemia, acute upper gastrointestinal bleeding, status post endoscopy showed hiatal hernia, antral gastritis with pre-pyloric ulcer and duodenal bulb ulcers. 2. History of hyperlipidemia. 3. Migraine. 4. History of section. 5. History of hysterectomy. 6. Remote history of nicotine dependence. 7. Melanosis around the lips. 8. FULL CODE. RECOMMENDATIONS AND DISCUSSION: Recommend to continue current medical management, continue monitoring and symptomatic treatment. Otherwise, continue H2 blockers and would also recommend this stop the ibuprofen and aspirin as well. I would recommend to add Carafate to current regimen and continue with Tylenol and guarded prognosis because of the because of the multiple complex medical issues. Further recommendations to follow. Discussed with Dr. Lebron. See orders for further details. Further recommendations to follow. Repeat CBC requested and advance diet slowly as per Dr. Lebron. MMODL / IJN: [id number] /
[2017-08-02 21:32] LABS: HCT 25.9 % (34.0-46.0); HGB 8.7 gm/dL (11.4-16.0); Hypochromasia Slight; MCH 30.9 pg (25.0-35.0); MCHC 33.8 g/dL (31.0-37.0); MCV 91.3 fL (80.0-100.0); Platelet Count 404 k/uL (150-450); Poikilocytosis Moderate; RBC 2.83 m/uL (3.80-5.40); RDW 13.8 % (11.5-15.5); WBC 7.5 k/uL (3.8-10.6)
[2017-08-03] MEDS: Acetaminophen-Codeine 300-30mg TAB PO PRN ×3 (00:49→08:47)
[2017-08-03 04:27] LABS: Basophils % (A) 1 %; Eosinophils # (A) 0.1 k/uL (0-0.7); Eosinophils % (A) 2 %; HCT 23.3 % (34.0-46.0); HGB 7.5 gm/dL (11.4-16.0); Hypochromasia Slight; Lymphocytes # (A) 1.8 k/uL (1.0-4.8); Lymphocytes % (A) 32 %; MCH 29.6 pg (25.0-35.0); MCHC 31.9 g/dL (31.0-37.0); MCV 92.6 fL (80.0-100.0); Mean Platelet Volume 6.7; Monocytes # (A) 0.4 k/uL (0-1.0); Monocytes % (A) 7 %; Neutrophils # (A) 3.1 k/uL (1.3-7.7); Neutrophils % (A) 57 %; Platelet Count 411 k/uL (150-450); Poikilocytosis Moderate; RBC 2.52 m/uL (3.80-5.40); RDW 14.1 % (11.5-15.5); WBC 5.5 k/uL (3.8-10.6)
[2017-08-03 04:37] LABS: Anion Gap 8 mmol/L; Blood Urea Nitrogen 9 mg/dL (7-17); Calcium 8.5 mg/dL (8.4-10.2); Carbon Dioxide 22 mmol/L (22-30); Chloride 112 mmol/L (98-107); Glucose 94 mg/dL (74-99); Potassium 3.8 mmol/L (3.5-5.1); Sodium 142 mmol/L (137-145)
[2017-08-03] MEDS: SUMAtriptan SUCCINATE 50 MG TAB PO PRN ×2 (05:20→13:19)
[2017-08-03 06:02] VITALS: BP 116/54; PULSE 81; RESP 18; TEMP 97.9
[2017-08-03] MEDS: ATORVASTATIN 10 MG TAB PO SCH (08:21)
[2017-08-03] MEDS: SUCRALFATE 1 GM TAB PO SCH ×2 (08:21→13:24)
[2017-08-03] MEDS: SODIUM CHLORIDE 0.9% 1,000 ML IV SCH (08:21)
[2017-08-03] MEDS: CIPROFLOXACIN HCL 500 MG TAB PO SCH (08:21)
[2017-08-03] MEDS: PANTOPRAZOLE 40 MG/10 ML VIAL IV SCH (08:22)
[2017-08-03 10:25] LABS: HCT 23.9 % (34.0-46.0); HGB 7.7 gm/dL (11.4-16.0); Hypochromasia Slight; MCH 29.9 pg (25.0-35.0); MCHC 32.1 g/dL (31.0-37.0); MCV 93.1 fL (80.0-100.0); Mean Platelet Volume 6.6; Platelet Count 414 k/uL (150-450); Poikilocytosis Moderate; RBC 2.57 m/uL (3.80-5.40); RDW 13.9 % (11.5-15.5); WBC 5.2 k/uL (3.8-10.6)
[2017-08-03] MEDS: MULTIVITAMINS, THERA 1 EACH TAB PO SCH (13:24)
--- NOTE | 2017-08-04 05:38 | DS ---
DISCHARGE SUMMARY DATE OF SERVICE: 08/03/2017. FINAL DIAGNOSES: 1. Anemia acute upper gastrointestinal bleeding status post endoscopy showing hiatal hernia and antral gastritis and pre-pyloric ulcer with duodenal bulb ulcers. 2. History of hyperlipidemia. 3. Migraine with excessive aspirin intake. 4. History of section. 5. History of hysterectomy. 6. Remote history of nicotine dependence. 7. Melanosis around the lip. 8. FULL CODE. DISCHARGE DISPOSITION: The patient is being discharged in stable condition with guarded prognosis. HISTORY OF PRESENT ILLNESS: This 51-year-old woman with a past history of multiple medical problems admitted with features of gastrointestinal bleeding, duodenal bulb ulcer. The patient was monitored closely. Patient was transfused. Hemoglobin 7.7. Dr. Lebron saw the patient. On exam, vital signs stable. Cardiovascular: S1, S2. Abdomen soft, nontender. Central nervous system: No focal deficits. DISCHARGE ADVICE AND MEDICATIONS: 1. Diet is cardiac diet. 2. Activity limited until follow up. 3. Follow up with Dr. Maite Craig in 2-3 days. 4. CBC and BMP. 5. Follow up with Dr. Lebron as advised. 6. Diet bland. No tea. No coffee. No pop. 7. Follow up with Dr. Luke for neurology followup. MEDICATIONS: 1. Tylenol #3 q4h p.r.n. 2. Multivitamins 1 p.o. daily. 3. Protonix 40 mg p.o. b.i.d. 4. Zocor 20 mg p.o. daily. 5. Carafate 1 g p.o. 6. Sumatriptan 100 mg t.i.d. p.r.n. Once again, the patient being discharged in stable condition with guarded prognosis. MMODL / IJN: [id number] /
== END 2017-08-03 14:00 | disposition home or self-care (01) ==
LOC: EC 12:55 → 5MS5E 16:40
PROVIDERS: ADMIT Internal Medicine; ATTEND Internal Medicine
DX: D62 Acute posthemorrhagic anemia (principal); K92.2 Gastrointestinal hemorrhage, unspecified; K44.9 Diaphragmatic hernia without obstruction or gangrene; K29.70 Gastritis, unspecified, without bleeding; K26.9 Duodenal ulcer, unspecified as acute or chronic, without hemorrhage or perforation; K25.9 Gastric ulcer, unspecified as acute or chronic, without hemorrhage or perforation; E78.5 Hyperlipidemia, unspecified; G43.909 Migraine, unspecified, not intractable, without status migrainosus; L81.4 Other melanin hyperpigmentation; Z87.891 Personal history of nicotine dependence; N39.0 Urinary tract infection, site not specified; Z79.899 Other long term (current) drug therapy; Z79.82 Long term (current) use of aspirin; Z83.3 Family history of diabetes mellitus; Z82.49 Family history of ischemic heart disease and other diseases of the circulatory system; Z88.2 Allergy status to sulfonamides
CPT/HCPCS: 36415; 43239; 71046; 74018; 80048; 80053; 81003; 82150; 82272; 82550; 82553; 82728; 83540; 83550; 83690; 84484; 85025; 85027; 86850; 86900; 86901; 86920; 88305; 93005; 96361; 96374; 96376; 99285

== ENCOUNTER → 2017-12-26 | Outpatient (CLI) | payer BC ==
--- NOTE | 2017-12-26 10:13 | MM ---
Reason for exam: additional evaluation requested from prior study. Last mammogram was performed 6 months ago. History: Family history of breast cancer in paternal aunt. Benign US biopsy breast VAD RT of the right breast, June 16, 2017. Took hormonal contraceptives for 10 years. Physical Findings: Nurse did not find any significant physical abnormalities on exam. MG 3D Diag Mammo W/Cad UMANG Bilateral CC and MLO view(s) were taken. Prior study comparison: June 16, 2017, right breast MG diagnostic mammo RT wo CAD. May 21, 2017, bilateral MG screening mammo w CAD. The breast tissue is heterogeneously dense. This may lower the sensitivity of mammography. There are stable right upper outer quadrant middle depth masses. Right post biopsy change. These results were verbally communicated with the patient and result sheet given to the patient on 12/26/17. ASSESSMENT: Benign, BI-RAD 2 RECOMMENDATION: Return to routine screening mammogram schedule for both breasts. Back on schedule for May 2018.
[2017-12-26 10:42] VITALS: BP 117/76; PULSE 68; RESP 18; TEMP 98.7; BMI 34.7
--- NOTE | 2017-12-26 11:07 | P.GSHP ---
History of Present Illness H&P Date: 12/26/17 Chief Complaint: fibroadenoma biopsied in [facility] The patient is a 52-year-old white female who is status post ultrasound core biopsy of a radiographic abnormality in the right breast in June 2017. This was consistent with a fibroadenoma. Mammogram but lateral prior to that did not reveal any lesions of concern in the left breast. The patient at this time has no complaints of any nodules in her breasts. She has no complaints of any nipple discharge or skin changes in her breast. She has not noted any infection in her breast and had no trauma to her breast. She presents for 6 month follow-up status post ultrasound-guided core biopsy of the right breast. The patient had bilateral breast mammogram performed [id number]. This was felt to be stable and repeat bilateral mammogram was recommended in May 2018. Family History: 1. paternal aunt: breast cancer 2. maternal grandmother: lung 3. paternal aunt: lung 4. paternal uncle: stomach Hormonal History: menarche: 13 : 4, 4 children, breast fed: no. first at 20 menopause: hysterectomy 9 years ago, having hot flashes now BCP: 10 years Hormones: no Past Surgical history: 1. hysterectomy 2. two eye surgeries 3. tubaligation Past Medical History: 1. bleeding ulcers 2. migrains Social History: smoke: none alcohol: none drugs: none - Review of Systems Comment: BMI: 34.8 - Constitutional Comment: hot flashes Constitutional: Denies chills, Denies fever - EENT Eyes: denies blurred vision, denies pain Ears: deny: decreased hearing, tinnitus Ears, nose, mouth and throat: Reports headache - Breasts Breasts: bilateral: as per HPI - Cardiovascular Comment: high cholesteral Cardiovascular: Denies chest pain, Denies shortness of breath - Respiratory Respiratory: Denies cough, Denies 7 - Gastrointestinal Comment: bleeding peptic ulcers Gastrointestinal: Denies abdominal pain, Denies diarrhea, Denies nausea, Denies vomiting - Genitourinary (Female) Genitourinary: Denies dysuria, Denies hematuria - Menstruation Menstruation: Reports post hysterectomy - Musculoskeletal Musculoskeletal: Denies myalgias - Integumentary Integumentary: Denies pruritus, Denies rash - Neurological Neurological: Denies numbness, Denies weakness - Psychiatric Psychiatric: Denies anxiety, Denies depression - Endocrine Endocrine: Denies fatigue, Denies weight change - Hematologic/Lymphatic Comment: none - Allergic/Immunologic Comment: as noted Past Medical History Past Medical History: Hyperlipidemia Additional Past Medical History / Comment(s): migraines, dx w/uti 07-31-17 History of Any Multi-Drug Resistant Organisms: None Reported Past Surgical History: Section, Hysterectomy, Tubal Ligation Additional Past Surgical History / Comment(s): venecia eye sx d/t lazy eye Past Anesthesia/Blood Transfusion Reactions: No Reported Reaction Past Psychological History: No Psychological Hx Reported Smoking Status: Former smoker Past Alcohol Use History: None Reported Additional Past Alcohol Use History / Comment(s): started smoking at age 17 ( 1982)and quit 1998 smoked 1 ppd Past Drug Use History: None Reported - Past Family History Mother Additional Family Medical History / Comment(s): diet conrrolled dm Father Family Medical History: Hypertension Additional Family Medical History / Comment(s): diet controlled diabetic Medications and Allergies Home Medications Medication Instructions Recorded Confirmed Type Multivitamin [Multivitamins Adult 1 tab PO DAILY 06/02/17 12/26/17 History Gummies] SUMAtriptan SUCCINATE [Sumatriptan 100 mg PO TID PRN 06/02/17 12/26/17 History Succinate] Simvastatin [Zocor] 20 mg PO DAILY 06/02/17 12/26/17 History Acetaminophen-Codeine 300-30mg 1 each PO Q4HR PRN #10 tab 08/03/17 12/26/17 Rx [Tylenol w/codeine #3] Pantoprazole Sodium [Protonix] 40 mg PO BID #60 tablet. 08/03/17 12/26/17 Rx Sucralfate [Carafate] 1 gm PO ACHS #120 tab 08/03/17 12/26/17 Rx Allergies Allergy/AdvReac Type Severity Reaction Status Date / Time Sulfa (Sulfonamide Allergy Unknown Verified 12/26/17 10:42 Antibiotics) Surgical - Exam Vital Signs Temp Pulse Resp BP Pulse Ox 98.7 F 68 18 117/76 96 12/26/17 10:32 12/26/17 10:32 12/26/17 10:32 12/26/17 10:32 12/26/17 10:32 BMI: 34.8 - General well developed, well nourished, no distress - Eyes normal ocular movement - ENT normal pinna, normal nares - Neck no masses, trachea midline - Respiratory normal respiratory effort, clear to auscultation - Cardiovascular Rhythm: regular Heart Sounds: normal: S1, S2 - Abdomen Abdomen: soft - Integumentary no rash, no abnormal pigmentation - Neurologic no disoriented, no combative - Musculoskeletal normal gait, normal posture - Psychiatric oriented to time, oriented to person, oriented to place, speech is normal, memory intact Breast examination: Right breast: Multiple positional exam no dominant masses or nodules of concern right breast slightly larger than left breast Right axilla: No adenopathy of concern Left breast: No dominant masses or nodules of concern of multiple positional exam Left axilla: No adenopathy of concern Results Radiograph of breast reviewed Assessment and Plan Assessment: Impression: 1. Biopsy-proven fibroadenoma right breast 2. Recent bilateral mammogram BIRADS 2 3. History of peptic ulcer disease 4. History of migraine headaches Plan: 1. Repeat bilateral mammogram 6 months to 1 year/ will discuss with radiology 2. Follow-up examination after bilateral mammogram 3. Medical management of medical problems CC:Dr. Maite Rivas
== END | disposition home or self-care (01) ==
LOC: RADMAMWWP 09:34
PROVIDERS: ATTEND Surgery
DX: R92.8 Other abnormal and inconclusive findings on diagnostic imaging of breast (principal)
CPT/HCPCS: 77062; 77066

== ENCOUNTER → 2018-05-15 | Outpatient (CLI) | payer BC ==
--- NOTE | 2018-05-15 09:23 | USB ---
Reason for exam: clinical finding. History: Family history of breast cancer in paternal aunt. Benign US biopsy breast VAD RT of the right breast, June 16, 2017. Took hormonal contraceptives for 10 years. Indicated problem(s): lump or thickening in the right breast. Physical Findings: Nurse Summary: Patient complains of bilateral axilla lumps x 2 weeks (nurse mj). US Breast Limited BILAT Left limited breast ultrasound including focal area of concern, retroareolar and axilla demonstrates no cystic or solid lesion seen. Right complete breast ultrasound includes all four quadrants, the retroareolar region and axilla. Finding demonstrates a 0.6 x 0.3 x 0.3cm oval, hypoechoic lesion at 8 o'clock previous biopsy site, a 2.0 x 0.7 x 1.7cm cystic lesion at 10 o'clock and a 1.2 x 0.6 x 0.7cm cystic cluster at 10 o'clock. These results were verbally communicated with the patient and result sheet given to the patient on 05/15/18. ASSESSMENT: Probably benign, BI-RAD 3 RECOMMENDATION: Follow-up diagnostic mammogram of both breasts in 6 months. Back on schedule. Manage patient on a clinical basis.
== END | disposition home or self-care (01) ==
LOC: RADUSWWP 07:22
PROVIDERS: ATTEND Family Medicine
DX: N63.31 Unspecified lump in axillary tail of the right breast (principal)

== ENCOUNTER → 2019-11-25 | Outpatient (CLI) | payer BC ==
--- NOTE | 2019-11-26 08:55 | MM ---
Reason for exam: additional evaluation requested from prior study. Last mammogram was performed 1 year and 11 months ago. History: Family history of breast cancer in paternal aunt. Benign US biopsy breast VAD RT of the right breast, June 16, 2017. Took hormonal contraceptives for 10 years. Physical Findings: Nurse did not find any significant physical abnormalities on exam. MG 3D Diag Mammo W/Cad UMANG Bilateral CC and MLO view(s) were taken. Prior study comparison: December 26, 2017, bilateral MG 3d diag mammo w/cad UMANG. June 16, 2017, right breast MG diagnostic mammo RT wo CAD. The breast tissue is heterogeneously dense. This may lower the sensitivity of mammography. Previous mammotome biopsy in the right breast. There is chronic nodularity in the right breast. New nodule upper outer left breast. 5.5cm from nipple, 1.2cm in size. These results were verbally communicated with the patient and result sheet given to the patient on 11/25/19. ASSESSMENT: Incomplete: need additional imaging evaluation, BI-RAD 0 RECOMMENDATION: Ultrasound of the left breast.
--- NOTE | 2019-11-26 08:57 | USB ---
Reason for exam: additional evaluation requested from abnormal screening. History: Family history of breast cancer in paternal aunt. Benign US biopsy breast VAD RT of the right breast, June 16, 2017. Took hormonal contraceptives for 10 years. US Breast Limited LT Left limited breast ultrasound including focal area of concern, retroareolar and axilla demonstrates a 1.2 x 0.7 x 1.3cm cystic cluster at 1 o'clock. These results were verbally communicated with the patient and result sheet given to the patient on 11/25/19. ASSESSMENT: Benign, BI-RAD 2 RECOMMENDATION: Routine screening mammogram of both breasts in 1 year.
== END | disposition home or self-care (01) ==
LOC: RADMAMWWP 14:08
PROVIDERS: ATTEND Family Medicine
DX: R92.8 Other abnormal and inconclusive findings on diagnostic imaging of breast (principal)
CPT/HCPCS: 77062; 77066

== ENCOUNTER → 2021-03-09 | Outpatient (CLI) | payer BC ==
--- NOTE | 2021-03-12 10:14 | MM ---
Reason for exam: screening (asymptomatic). Last mammogram was performed 1 year and 3 months ago. History: Patient is postmenopausal. Family history of breast cancer in paternal aunt. Benign US biopsy breast VAD RT of the right breast, June 16, 2017. Took hormonal contraceptives for 10 years. Physical Findings: A clinical breast exam by your physician is recommended on an annual basis and results should be correlated with mammographic findings. MG 3D Screening Mammo W/Cad Bilateral CC and MLO view(s) were taken. Prior study comparison: November 25, 2019, bilateral MG 3d diag mammo w/cad UMANG. December 26, 2017, bilateral MG 3d diag mammo w/cad UMANG. There are scattered fibroglandular densities. Previous mammotome biopsy in the right breast. There is chronic nodularity bilaterally, stable, corresponds to cystic cluster versus 11/25/19. There is no new dominant lesion. ASSESSMENT: Benign, BI-RAD 2 RECOMMENDATION: Routine screening mammogram of both breasts in 1 year.
== END | disposition home or self-care (01) ==
LOC: RADMAMWWP 07:45
PROVIDERS: ATTEND Family Medicine
DX: Z12.31 Encounter for screening mammogram for malignant neoplasm of breast (principal); Z80.3 Family history of malignant neoplasm of breast; Z78.0 Asymptomatic menopausal state
CPT/HCPCS: 77063; 77067

== ENCOUNTER → 2021-06-01 | Outpatient (CLI) | payer BC ==
--- NOTE | 2021-06-01 14:26 | USB ---
Reason for exam: clinical finding. History: Patient is postmenopausal. Family history of breast cancer in paternal aunt. Benign US biopsy breast VAD RT of the right breast, June 16, 2017. Took hormonal contraceptives for 10 years. Physical Findings: A clinical breast exam by your physician is recommended on an annual basis and results should be correlated with mammographic findings. US Breast RT Right complete breast ultrasound includes all four quadrants, the retroareolar region and axilla. Finding demonstrates a 0.8 x 0.6 x 0.4cm oval lesion at 7 o'clock, stable from 2019 and was biopsied and a 1.5 x 0.7 x 0.6cm lobular lesion at 10 o'clock, decreased in size from 2019, suspect debris filled cyst. ASSESSMENT: Probably benign, BI-RAD 3 RECOMMENDATION: Ultrasound of the right breast in 6 months. Manage on a clinical basis with regard to right pain.
== END | disposition home or self-care (01) ==
LOC: RADUSWWP 07:42
PROVIDERS: ATTEND Family Medicine
DX: N64.4 Mastodynia (principal); Z78.0 Asymptomatic menopausal state; Z80.3 Family history of malignant neoplasm of breast

== ENCOUNTER → 2022-02-12 | Outpatient (CLI) | payer BC ==
--- NOTE | 2022-02-12 14:40 | USB ---
Reason for Exam: Follow-up at short interval from prior study. Patient History: Menarche at age 13. First Full-Term at age 20. Hysterectomy at age 41. Postmenopausal. Patient used Hormonal Contraceptives for 10 years. 06/16/2017, Benign Core Biopsy on the right side. Paternal aunt had breast cancer. Risk Values: Suyapa 5 year model risk: 1.0%. NCI Lifetime model risk: 7.0%. Technique: Method: Targeted. Prior Study Comparison: 12/26/2017 Bilateral Diagnostic Mammogram, [facility]. 11/25/2019 Bilateral Diagnostic Mammogram, [facility]. 03/09/2021 Bilateral Screening Mammogram, [facility]. Findings: The lateral section of the breast of the right breast, the axilla of the right breast and the retroareolar of the right breast were scanned. A complete US of all four quadrants of the breast right and retro-areolar region and axilla were reviewed. Relatively stable 0.8 x 0.4 x 0.5 cm hypoechoic lesion at 7:00 8 cm from the nipple in the right breast was previously biopsied. Stable anechoic lobular lesion with internal debris measuring 1.6 x 0.7 x 0.8 cm, suspect debris-filled cyst.Targeted US of the right breast from 7-12 o'clock with evaluation the nipple and axilla was performed. Relatively stable 0.8 x 0.4 x 0.5 cm hypoechoic lesion at 7:00 8 cm from the nipple in the right breast was previously biopsied. Stable anechoic lobular lesion with internal debris measuring 1.6 x 0.7 x 0.8 cm, suspect debris-filled cyst. Overall Assessment: Benign, BI-RAD 2 Management: Screening Mammogram of both breasts in 1 month. A clinical breast exam by your physician is recommended on an annual basis and results should be correlated with mammographic findings. This exam should not preclude additional follow-up of suspicious palpable abnormalities. Results were given to the patient verbally at the time of exam. Electronically signed and approved by: Haile Medley D.O.
== END | disposition home or self-care (01) ==
LOC: RADUSWWP 13:51
PROVIDERS: ATTEND Family Medicine
DX: R92.8 Other abnormal and inconclusive findings on diagnostic imaging of breast (principal); Z78.0 Asymptomatic menopausal state; Z80.3 Family history of malignant neoplasm of breast; Z98.890 Other specified postprocedural states

== ENCOUNTER → 2022-09-24 | Outpatient (CLI) | payer BC ==
--- NOTE | 2022-09-25 19:16 | MM ---
Reason for Exam: Screening (asymptomatic). Last mammogram was performed 1 year(s) and 7 month(s) ago. Patient History: Menarche at age 13. First Full-Term at age 20. Hysterectomy at age 41. Postmenopausal. Patient used Hormonal Contraceptives for 10 years. 06/16/2017, Benign Core Biopsy on the right side. Paternal aunt had breast cancer. Risk Values: Suyapa 5 year model risk: 1.0%. NCI Lifetime model risk: 7.0%. Prior Study Comparison: 12/26/2017 Bilateral Diagnostic Mammogram, [facility]. 11/25/2019 Bilateral Diagnostic Mammogram, [facility]. 03/09/2021 Bilateral Screening Mammogram, [facility]. Tissue Density: There are scattered fibroglandular densities. Findings: Analyzed By CAD. Chronic nodularity on the right. Microclip lateral right breast from prior biopsy. There is no suspicious group of microcalcifications or new suspicious mass in either breast. Overall Assessment: Benign, BI-RAD 2 Management: Screening Mammogram of both breasts in 1 year. . Patient should continue monthly self-breast exams. A clinical breast exam by your physician is recommended on an annual basis. This exam should not preclude additional follow-up of suspicious palpable abnormalities. Note on Suyapa scores and lifetime risk: 1. A Suyapa score greater than 3% is considered moderate risk. If this is the case, consider specialist referral to assess eligibility for a risk reducing agent. 2. If overall lifetime risk for the development of breast cancer is 20% or higher, the patient may qualify for future screening with alternating mammogram and breast MRI. Electronically signed and approved by: Mir Ocampo M.D. Radiologist
== END | disposition home or self-care (01) ==
LOC: RADMAMWWP 16:32
PROVIDERS: ATTEND Family Medicine
DX: Z12.31 Encounter for screening mammogram for malignant neoplasm of breast (principal); Z78.0 Asymptomatic menopausal state; Z80.3 Family history of malignant neoplasm of breast
CPT/HCPCS: 77063; 77067

== ENCOUNTER 2023-10-02 08:40 | Emergency (ER) | payer BC ==
--- NOTE | 2023-10-02 09:03 | ED ---
General Adult HPI - General Chief complaint: GI Bleed Stated complaint: dizzy Time Seen by Provider: 10/02/23 09:01 Source: patient, RN notes reviewed Mode of arrival: ambulatory Limitations: no limitations - History of Present Illness Initial comments: 57-year-old female presented to the ER with a chief complaint of dizziness. Patient reports a past medical history significant of peptic ulcers and has required transfusions in the past. She states about 2 days ago she started to notice her stools were dark and tarry. Patient was seen by PCP yesterday and was told she did have a positive stool occult. She states she is also having some associated dizziness as if she is going to pass out. She states she has been feeling like she is going to fall at home. She states she has fallen but it was onto her bed and was uninjured. She does endorse mild abdominal pain. For which she has taken Pepcid with no relief. She denies any fevers or chills. She does report a history of hemorrhoids during . Denies blood thinner use. Denies chest pain, shortness of breath or peripheral edema. - Related Data Home Medications Medication Instructions Recorded Confirmed SUMAtriptan succinate 100 mg PO DAILY PRN 06/02/17 10/02/23 Adalimumab [Humira(Cf) Pen] 40 mg SQ Q14D 05/11/22 10/02/23 Simvastatin [Zocor] 80 mg PO HS 05/11/22 10/02/23 Aspirin/Acetaminophen/Caffeine 2 tab PO QID PRN 10/02/23 10/02/23 [Excedrin Migraine Caplet] Dutasteride 0.5 mg PO MOWEFR 10/02/23 10/02/23 Famotidine 40 mg PO DAILY 10/02/23 10/02/23 Allergies Allergy/AdvReac Type Severity Reaction Status Date / Time Sulfa (Sulfonamide Allergy Rash/Hives Verified 10/02/23 10:44 Antibiotics) Review of Systems ROS Statement: Those systems with pertinent positive or pertinent negative responses have been documented in the HPI. ROS Other: All systems not noted in ROS Statement are negative. Past Medical History Past Medical History: Hyperlipidemia Additional Past Medical History / Comment(s): migraines, dx w/uti 07-31-17 History of Any Multi-Drug Resistant Organisms: None Reported Past Surgical History: Section, Hysterectomy, Tubal Ligation Additional Past Surgical History / Comment(s): venecia eye sx d/t lazy eye Past Anesthesia/Blood Transfusion Reactions: No Reported Reaction Past Psychological History: No Psychological Hx Reported Smoking Status: Never smoker Past Alcohol Use History: None Reported Past Drug Use History: None Reported - Past Family History Mother Additional Family Medical History / Comment(s): diet conrrolled dm Father Family Medical History: Hypertension Additional Family Medical History / Comment(s): diet controlled diabetic General Exam Limitations: no limitations General appearance: alert, in no apparent distress Respiratory exam: Present: normal lung sounds bilaterally. Absent: respiratory distress, wheezes, rales, rhonchi, stridor Cardiovascular Exam: Present: regular rate, normal rhythm, normal heart sounds. Absent: systolic murmur, diastolic murmur, rubs, gallop, clicks GI/Abdominal exam: Present: soft, normal bowel sounds. Absent: distended, tenderness, guarding, rebound, rigid Rectal exam: Present: normal inspection, normal rectal tone Extremities exam: Present: normal inspection, full ROM, normal capillary refill. Absent: tenderness, pedal edema, joint swelling, calf tenderness Neurological exam: Present: alert, oriented X3, CN II-XII intact Skin exam: Present: warm, dry, intact, normal color. Absent: rash Course Vital Signs 10/02/23 10/02/23 10/02/23 08:47 09:20 10:01 Temperature 98.1 F 98.2 F Pulse Rate 102 H 89 79 Respiratory 16 17 18 Rate Blood Pressure 112/81 128/62 123/63 O2 Sat by Pulse 99 98 97 Oximetry 10/02/23 11:00 Temperature Pulse Rate 72 Respiratory 18 Rate Blood Pressure 115/59 O2 Sat by Pulse 97 Oximetry - Reevaluation(s) Reevaluation #1: 10/02/23 09:25 Rectal exam completed and chaperoned by Radha MORRELL. 10/02/23 11:18 Case discussed with on-call general surgeon, , who advised on transfer for GI consult. 10/02/23 12:[address] Davin Palomares, who accepts transfer. Medical Decision Making - Medical Decision Making Was pt. sent in by a medical professional or institution (, PA, KERFER MACHINE OPERATOR, urgent care, hospital, or shelter...) When possible be specific @ -No Did you speak to anyone other than the patient for history (EMS, parent, family, police, friend...)? What history was obtained from this source @ -No Did you review nursing and triage notes (agree or disagree)? Why? @ -I reviewed and agree with nursing and triage notes Were old charts reviewed (outside hosp., previous admission, EMS record, old EKG, old radiological studies, urgent care reports/EKG's, shelter records)? Report findings @ -Yes, I reviewed laboratory studies from 10-01-2023. Hemoglobin 10.8. Differential Diagnosis (chest pain, altered mental status, abdominal pain women, abdominal pain men, vaginal bleeding, weakness, fever, dyspnea, syncope, headache, dizziness, GI bleed, back pain, seizure, CVA, palpatations, mental health, musculoskeletal)? @ -Differential GI Bleed:Esophageal varices, aortoenteric fistula, Makenzie- Wilburn, gastritis, peptic ulcer disease, diverticulosis, inflammatory bowel disease, hemorrhoids, fissure, colitis, malignancy, Meckels diverticulum, this is not meant to be an all-inclusive list. EKG interpreted by me (3pts min.). @ -As above X-rays interpreted by me (1pt min.). @ -None done CT interpreted by me (1pt min.). @ -CTA abdomen pelvis showing no acute changes within the abdomen. There is dilated fluid-filled tubular structure of the left retroperitoneum and pelvis scattered about. Etiology undetermined at could represent a dilated superior pole of the left kidney or dilated left ovarian vein. There is no renal calcifications or definitive hydronephrosis. No bowel obstruction or inflammation. No free intraperitoneal air or fluid. U/S interpreted by me (1pt. min.). @ -None done What testing was considered but not performed or refused? (CT, X-rays, U/S, labs)? Why? @ -None What meds were considered but not given or refused? Why? @ -None Did you discuss the management of the patient with other professionals (kaushik laboy i.eYevgeniy Smith, PA, KERFER MACHINE OPERATOR, lab, RT, psych nurse, oncology social work, voice systems engineer, teacher, cash management officer, shoe parts caser)? Give summary @ -Yes, Case discussed with system configuration specialist general surgery, who advised ontransfer for GI consult. I also discussed this case with [facility], Dr. Jin who accepts transfer. Was smoking cessation discussed for >3mins.? @ -No Was critical care preformed (if so, how long)? @ -No Were there social determinants of health that impacted care today? How? (Homelessness, low income, unemployed, alcoholism, drug addiction, transportation, low edu. Level, literacy, decrease access to med. care, [facility], rehab)? @ -No Was there de-escalation of care discussed even if they declined (Discuss DNR or withdrawal of care, Hospice)? DNR status @ -No What co-morbidities impacted this encounter? (DM, HTN, Smoking, COPD, CAD, Cancer, CVA, ARF, Chemo, Hep., AIDS, mental health diagnosis, sleep apnea, morbid obesity)? @ -History of peptic ulcer disease requiring blood transfusion 2017. Was patient admitted / discharged? Hospital course, meds given and route, prescriptions, significant lab abnormalities, going to OR and other pertinent info. @ -Transferred. 57-year-old female presented to the ER with a chief complaint of dizziness and dark stools. History and physical exam completed. Vitals stable throughout ER stay. Patient in no signs of acute distress and nontoxic- appearing. No focal abdominal tenderness. Normal bowel sounds with no rebound or guarding. Rectal exam performed and chaperoned by Radha MORRELL. Normal rectal tone with no gross blood, hemorrhoids or fissures present. Laboratory studies obtained remarkable for a normocytic normochromic anemia hemoglobin 9.0. Patient did have laboratory studies completed yesterday at primary care's office hemoglobin at that time was 10.8. Otherwise labs unremarkable. Stool occult positive. CT angio abdomen pelvis showing no acute changes within the abdomen. No bowel obstruction or inflammation. No free intraperitoneal fluid or air. There is dilated fluid filled tubular structure in the left retroperitoneum and pelvis scattered about. Unknown etiology. I discussed this case with on-call general surgeon, , for admission he advised on transfer for GI consult. Case discussed with Dr. Jin, [facility], who accepts transfer. Patient did receive 80 mg IV Protonix and IV fluids. Patient also received 100 mg PO Imitrex for headache. Patient agreeable for transfer. Patient will be transported in stable condition via EMS to [facility] for further evaluation. Case discussed with ED attending, Dr. Villegas. Undiagnosed new problem with uncertain prognosis? @ -No Drug Therapy requiring intensive monitoring for toxicity (Heparin, Nitro, Insulin, Cardizem)? @ -No Were any procedures done? @ -No Diagnosis/symptom? @ -Anemia/GI bleed Acute, or Chronic, or Acute on Chronic? @ -Acute Uncomplicated (without systemic symptoms) or Complicated (systemic symptoms)? @ -Complicated Side effects of treatment? @ -No Exacerbation, Progression, or Severe Exacerbation? @ -No Poses a threat to life or bodily function? How? (Chest pain, [place], [place], pneumonia, PE, COPD, DKA, ARF, appy, cholecystitis, CVA, Diverticulitis, Homicidal, Suicidal, threat to staff... and all critical care pts) @ -Yes, GI bleed can lead to hypovolemic shock. Anemia can lead to hypoxia. - Lab Data Result diagrams: 10/02/23 09:10 10/02/23 09:10 Lab Results 10/02/23 10/02/23 10/02/23 Range/Units 09:10 09:10 09:10 WBC 9.9 (3.8-10.6) k/uL RBC 2.87 L (3.80-5.40) m/uL Hgb 9.0 L D (11.4-16.0) gm/dL Hct 27.3 L (34.0-46.0) % MCV 95.1 (80.0-100.0) fL MCH 31.4 (25.0-35.0) pg MCHC 33.0 (31.0-37.0) g/dL RDW 13.2 (11.5-15.5) % Plt Count 313 (150-450) k/uL MPV 7.6 Neutrophils % 69 % Lymphocytes % 23 % Monocytes % 5 % Eosinophils % 1 % Basophils % 0 % Neutrophils # 6.8 (1.3-7.7) k/uL Lymphocytes # 2.3 (1.0-4.8) k/uL Monocytes # 0.4 (0-1.0) k/uL Eosinophils # 0.1 (0-0.7) k/uL Basophils # 0.0 (0-0.2) k/uL PT 10.0 (10.0-12.5) sec INR 0.9 (<1.2) APTT 21.3 L (22.0-30.0) sec Sodium (137-145) mmol/L Potassium (3.5-5.1) mmol/L Chloride (98-107) mmol/L Carbon Dioxide (22-30) mmol/L Anion Gap mmol/L BUN (7-17) mg/dL Creatinine (0.52-1.04) mg/dL Est GFR (CKD-EPI)AfAm (>60 ml/min/1.73 sqM) Est GFR (CKD-EPI)NonAf (>60 ml/min/1.73 sqM) Glucose (74-99) mg/dL Plasma Lactic Acid Afshin (0.7-2.0) mmol/L Calcium (8.4-10.2) mg/dL Total Bilirubin (0.2-1.3) mg/dL AST (14-36) U/L ALT (4-34) U/L Alkaline Phosphatase (38-126) U/L Troponin I (0.000-0.034) ng/mL Total Protein (6.3-8.2) g/dL Albumin (3.5-5.0) g/dL Stool Occult Blood Positive H (Negative) Blood Type Blood Type Recheck Bld Type Recheck Status Antibody Screen Spec Expiration Date 10/02/23 10/02/23 10/02/23 Range/Units 09:10 09:10 09:10 WBC (3.8-10.6) k/uL RBC (3.80-5.40) m/uL Hgb (11.4-16.0) gm/dL Hct (34.0-46.0) % MCV (80.0-100.0) fL MCH (25.0-35.0) pg MCHC (31.0-37.0) g/dL RDW (11.5-15.5) % Plt Count (150-450) k/uL MPV Neutrophils % % Lymphocytes % % Monocytes % % Eosinophils % % Basophils % % Neutrophils # (1.3-7.7) k/uL Lymphocytes # (1.0-4.8) k/uL Monocytes # (0-1.0) k/uL Eosinophils # (0-0.7) k/uL Basophils # (0-0.2) k/uL PT (10.0-12.5) sec INR (<1.2) APTT (22.0-30.0) sec Sodium 139 (137-145) mmol/L Potassium 4.0 (3.5-5.1) mmol/L Chloride 110 H (98-107) mmol/L Carbon Dioxide 23 (22-30) mmol/L Anion Gap 6 mmol/L BUN 35 H (7-17) mg/dL Creatinine 0.72 (0.52-1.04) mg/dL Est GFR (CKD-EPI)AfAm >90 (>60 ml/min/1.73 sqM) Est GFR (CKD-EPI)NonAf >90 (>60 ml/min/1.73 sqM) Glucose 112 H (74-99) mg/dL Plasma Lactic Acid Afshin 1.1 (0.7-2.0) mmol/L Calcium 9.5 (8.4-10.2) mg/dL Total Bilirubin 0.3 (0.2-1.3) mg/dL AST 20 (14-36) U/L ALT 19 (4-34) U/L Alkaline Phosphatase 68 (38-126) U/L Troponin I (0.000-0.034) ng/mL Total Protein 6.2 L (6.3-8.2) g/dL Albumin 4.1 (3.5-5.0) g/dL Stool Occult Blood (Negative) Blood Type A Positive Blood Type Recheck A Pos Bld Type Recheck Status No Antibody Screen NEGATIVE Spec Expiration Date 10/05/2023 - 230910/02/23 Range/Units 09:16 WBC (3.8-10.6) k/uL RBC (3.80-5.40) m/uL Hgb (11.4-16.0) gm/dL Hct (34.0-46.0) % MCV (80.0-100.0) fL MCH (25.0-35.0) pg MCHC (31.0-37.0) g/dL RDW (11.5-15.5) % Plt Count (150-450) k/uL MPV Neutrophils % % Lymphocytes % % Monocytes % % Eosinophils % % Basophils % % Neutrophils # (1.3-7.7) k/uL Lymphocytes # (1.0-4.8) k/uL Monocytes # (0-1.0) k/uL Eosinophils # (0-0.7) k/uL Basophils # (0-0.2) k/uL PT (10.0-12.5) sec INR (<1.2) APTT (22.0-30.0) sec Sodium (137-145) mmol/L Potassium (3.5-5.1) mmol/L Chloride (98-107) mmol/L Carbon Dioxide (22-30) mmol/L Anion Gap mmol/L BUN (7-17) mg/dL Creatinine (0.52-1.04) mg/dL Est GFR (CKD-EPI)AfAm (>60 ml/min/1.73 sqM) Est GFR (CKD-EPI)NonAf (>60 ml/min/1.73 sqM) Glucose (74-99) mg/dL Plasma Lactic Acid Afshin (0.7-2.0) mmol/L Calcium (8.4-10.2) mg/dL Total Bilirubin (0.2-1.3) mg/dL AST (14-36) U/L ALT (4-34) U/L Alkaline Phosphatase (38-126) U/L Troponin I <0.012 (0.000-0.034) ng/mL Total Protein (6.3-8.2) g/dL Albumin (3.5-5.0) g/dL Stool Occult Blood (Negative) Blood Type Blood Type Recheck Bld Type Recheck Status Antibody Screen Spec Expiration Date - EKG Data -: EKG Interpreted by Me EKG Comments: EKG taken at 8: 58 showing a normal sinus rhythm. No acute ST segment or T wave abnormalities. Ventricular rate 83, GA interval 131, QRS duration 87, QT/QTc 354/394. - Radiology Data Radiology results: report reviewed, image reviewed Disposition Clinical Impression: Anemia, GI bleed Disposition: OTHER INSTITUTION NOT DEFINED Condition: Stable Referrals: Maite Craig MD [Primary Care Provider] - 1-2 days Time of Disposition: 11:56 - Out of Hospital Transfer - Req. Specs Out of Hospital Transfer - Requested Specifics: Other Emergency Center ([facility]
[2023-10-02] MEDS: SODIUM CHLORIDE 0.9% 1,000 ML IV STA (09:16)
[2023-10-02 09:34] LABS: ALT 19 U/L (4-34); AST 20 U/L (14-36); African American GFR (CKD) >90 (>60 ml/min/1.73 sqM); Albumin 4.1 g/dL (3.5-5.0); Alkaline Phosphatase 68 U/L (38-126); Anion Gap 6 mmol/L; Blood Urea Nitrogen 35 mg/dL (7-17); Calcium 9.5 mg/dL (8.4-10.2); Carbon Dioxide 23 mmol/L (22-30); Chloride 110 mmol/L (98-107); Glucose 112 mg/dL (74-99); Non-African American GFR(CKD) >90 (>60 ml/min/1.73 sqM); Sodium 139 mmol/L (137-145); Total Bilirubin 0.3 mg/dL (0.2-1.3); Total Protein 6.2 g/dL (6.3-8.2)
[2023-10-02 09:43] LABS: INR 0.9 (<1.2); Partial Thromboplastin Time 21.3 sec (22.0-30.0)
[2023-10-02 10:18] LABS: Basophils % (A) 0 %; Eosinophils # (A) 0.1 k/uL (0-0.7); Eosinophils % (A) 1 %; HCT 27.3 % (34.0-46.0); Lymphocytes # (A) 2.3 k/uL (1.0-4.8); Lymphocytes % (A) 23 %; MCH 31.4 pg (25.0-35.0); MCV 95.1 fL (80.0-100.0); Mean Platelet Volume 7.6; Monocytes # (A) 0.4 k/uL (0-1.0); Monocytes % (A) 5 %; Neutrophils # (A) 6.8 k/uL (1.3-7.7); Neutrophils % (A) 69 %; Platelet Count 313 k/uL (150-450); RBC 2.87 m/uL (3.80-5.40); RDW 13.2 % (11.5-15.5); WBC 9.9 k/uL (3.8-10.6)
[2023-10-02] MEDS: PANTOPRAZOLE 40 MG/10 ML VIAL IVP STA (10:43)
[2023-10-02] MEDS: ACETAMINOPHEN TAB 325 MG TAB PO STA ×2 (10:48→15:08)
--- NOTE | 2023-10-02 10:55 | CT ---
CTA abdomen and pelvis. HISTORY: Melena. COMPARISON: None. TECHNIQUE: Multiple axial images are obtained through the abdomen and pelvis according to the CTA pro tocol and following IV contrast material. FINDINGS: Lungs are clear. The gallbladder is normal without distention, wall thickening or gallstone. There are multiple well-circumscribed low-density lesions within the liver the largest of which is 2. 4 cm. These are most consistent with simple hepatic cysts. There is no organomegaly or solid mass involving the liver, pancreas, spleen or adrenal glands. There is no solid renal mass or hydronephrosis. There is a large tubular fluid filled structure exten ding from the superior pole of the left kidney extending to the left pelvis which appears represent a dilated upper pole left renal collecting system but there is no evidence of distal ureteral calculus . Alternatively this could represent a variant of dilated left ovarian vein. There is no aneurysmal dilatation. There is no retroperitoneal adenopathy or hemorrhage. The bowel loops are normal in caliber and no dilatation or obstruction. No inflammatory changes are i dentified in the mesentery or bowel wall. There is no free intraperitoneal air or fluid. There is no pelvic mass, free fluid, abscess or adenopathy. The osseous structures are intact. IMPRESSION: 1. No acute changes within the abdomen. 2. Dilated fluid-filled tubular structure in the left retroperitoneum and pelvis scattered about. Keturah ology indeterminate could represent a dilated superior pole the left kidney or dilated left ovarian v ein. There are no renal calcifications and no definite hydronephrosis. 3. No bowel obstruction or inflammation. 4. No free intraperitoneal air or fluid.
[2023-10-02] MEDS: SUMAtriptan succinate 50 MG TAB PO STA (11:12)
[2023-10-02 12:04] VITALS: TEMP 98.1
[2023-10-02 13:35] VITALS: RESP 18
[2023-10-02 15:12] VITALS: BP 116/48
[2023-10-02 15:27] VITALS: PULSE 81
== END 2023-10-02 15:26 | disposition other institution (70) ==
LOC: EC 08:40
DX: K92.2 Gastrointestinal hemorrhage, unspecified (principal); D64.9 Anemia, unspecified; Z88.2 Allergy status to sulfonamides; Z87.11 Personal history of peptic ulcer disease
CPT/HCPCS: 36415; 93005; 86900; 86901; 80053; 83605; 84484; 85025; 85610; 85730; 86850; 82272; 74174; 99285; 96374; 96361; Q9967; J2470

== ENCOUNTER 2023-12-12 06:36 | Day surgery (SDC) | payer BC ==
[2023-12-11 09:11] VITALS: BMI 34.2
[2023-12-12] MEDS: IV FLUID CONTINUATION 1,000 ML IV ONE (07:05)
[2023-12-12 07:30] VITALS: TEMP 97.1
[2023-12-12] MEDS ORDERED: LIDOCAINE 2% (PF) 20 MG/ML 5 ML VIAL ONE (07:44)
[2023-12-12] MEDS ORDERED: PROPOFOL 10 MG/ML 20 ML VIAL IV ONE (07:44)
--- NOTE | 2023-12-12 08:16 | P.PCN ---
Date of Procedure: 12/12/23 Procedure(s) Performed: Brief history: Patient is a pleasant 58-year-old white female scheduled for an elective upper endoscopy as well as colonoscopy as a part of evaluation of prior history of peptic ulcer disease and screening for colon cancer. She was diagnosed with duodenal ulcer and August of this year and since then has been on PPIs. She denies any abdominal pain, nausea vomiting. She is scheduled for a colonoscopy as part of screening for colorectal neoplasia Procedure performed: Esophagogastroduodenoscopy with biopsy Colonoscopy Preoperative diagnosis: History of peptic ulcer disease screening for colon cancer Anesthesia: MAC Procedure: After informed consent was obtained from the patient was brought into the endoscopy unit and IV sedation was administered by anesthesia under continuous monitoring. Initially upper endoscopy was done. The Olympus GF 160 video endoscope was inserted inserted into the mouth and esophagus intubated without any difficulty and was gradually advanced into the stomach and duodenum and carefully examined. The bulb and second part of the duodenum appeared normal. Previously noted duodenal ulcer has completely healed. The scope was then withdrawn into the stomach adequately insufflated with air and upon careful examination the antrum had mild gastritis and biopsies were done from this area. Mucosa of the body, cardia and fundus appeared normal. The scope was then withdrawn into the esophagus. The GE junction was located at 40 cm to the incisors. It appeared regular with no erythema erosions or ulcerations. Rest of the esophagus appeared normal. Patient tolerated the procedure well. At this time the patient continued to remain sedation. Initial digital rectal examination was normal. Olympus CF 160 video colonoscope was then inserted into the rectum and gradually advanced to the cecum without any difficulty. Careful examination was performed as the scope was gradually being withdrawn. The prep was excellent. The cecum, ascending colon, transverse colon, descending colon, sigmoid colon and rectum appeared normal. Scattered sigmoid diverticulosis. Retroflexion was performed in the rectum and no lesions were noted. Patient tolerated the procedure well. Impression: 1. Upper endoscopy with biopsy gastritis but no evidence of esophagitis or peptic ulcer disease 2. Colonoscopy revealed scattered sigmoid diverticulosis but no evidence of colorectal neoplasia Recommendations: Findings of this examination were discussed with the patient as well as her family. She was advised to follow with the biopsy results. Avoid NSAIDs. Recommend repeat screening colonoscopy in 10 years.
[2023-12-12 08:23] VITALS: RESP 16
[2023-12-12] MEDS ORDERED: LACTATED RINGERS 1,000 ML IV SCH (08:23)
[2023-12-12 08:38] VITALS: BP 116/54; PULSE 51
== END 2023-12-12 08:49 | disposition home or self-care (01) ==
LOC: ORWHC2ENDO 06:36
PROVIDERS: ATTEND Internal Medicine Gastroenterology
DX: Z12.11 Encounter for screening for malignant neoplasm of colon (principal); K29.50 Unspecified chronic gastritis without bleeding; K26.9 Duodenal ulcer, unspecified as acute or chronic, without hemorrhage or perforation; K57.30 Diverticulosis of large intestine without perforation or abscess without bleeding; E78.5 Hyperlipidemia, unspecified; Z88.2 Allergy status to sulfonamides; Z79.899 Other long term (current) drug therapy
CPT/HCPCS: 43239; 45378; 88305

== ENCOUNTER → 2024-04-01 | Outpatient (CLI) | payer BC ==
--- NOTE | 2024-04-01 15:03 | MM ---
Reason for Exam: Screening (asymptomatic). Last mammogram was performed 1 year(s) and 6 month(s) ago. Patient History: Menarche at age 13. First Full-Term at age 20. Hysterectomy at age 41. Postmenopausal. Patient used Hormonal Contraceptives for 10 years. 06/16/2017, Benign Core Biopsy on the right side. Paternal aunt had breast cancer. Risk Values: Suyapa 5 year model risk: 1.1%. NCI Lifetime model risk: 6.7%. Prior Study Comparison: 11/25/2019 Bilateral Diagnostic Mammogram, [facility]. 03/09/2021 Bilateral Screening Mammogram, [facility]. 09/24/2022 Bilateral MG 3D screening mammo w/cad, [facility]. Tissue Density: There are scattered areas of fibroglandular density. Findings: Analyzed By CAD. Chronic nodularity on the right. Microclip right breast from prior biopsy. There is no suspicious group of microcalcifications or new suspicious mass in either breast. Overall Assessment: Benign, BI-RAD 2 Management: Screening Mammogram of both breasts in 1 year. Patient should continue monthly self-breast exams. A clinical breast exam by your physician is recommended on an annual basis. This exam should not preclude additional follow-up of suspicious palpable abnormalities. Note on Suyapa scores and lifetime risk: 1. A Suyapa score greater than 3% is considered moderate risk. If this is the case, consider specialist referral to assess eligibility for a risk reducing agent. 2. If overall lifetime risk for the development of breast cancer is 20% or higher, the patient may qualify for future screening with alternating mammogram and breast MRI. [facility], , 04/01/2024 3:01 PM. Electronically signed and approved by: Mir Ocampo M.D. Radiologist
== END | disposition home or self-care (01) ==
LOC: RADMAMWWP 14:33
PROVIDERS: ATTEND Family Medicine
DX: Z12.31 Encounter for screening mammogram for malignant neoplasm of breast (principal); R92.323 Mammographic fibroglandular density, bilateral breasts; Z78.0 Asymptomatic menopausal state; Z80.3 Family history of malignant neoplasm of breast
CPT/HCPCS: 77063; 77067